=== PATIENT | male | born 1980 | race African-American/Black ===

== ENCOUNTER 2020-11-04 15:58 | Emergency (ER) | payer BC ==
[~2020-11-04] VITALS: Ht 175.3 cm; Wt 131.8 kg
[2020-11-04 17:47] VITALS: BP 158/64; PULSE 78; TEMP 98.2
== END 2020-11-04 17:49 | disposition home or self-care (01) ==
LOC: COL.ER 15:58
DX: S93.402A Sprain of unspecified ligament of left ankle, initial encounter (principal); B35.1 Tinea unguium; X50.1XXA Overexertion from prolonged static or awkward postures, initial encounter; Y93.01 Activity, walking, marching and hiking